=== PATIENT | female | born 1995 | race Caucasian/White ===

== ENCOUNTER 2017-06-30 22:06 | Emergency (ER) | payer OTHER ==
[~2017-06-30] VITALS: Ht 157.5 cm; Wt 51.1 kg
[~2017-06-30 22:06] MED LIST: AMOXICILLIN500 M1 PO; AMOXICILLIN500 MG PO; ASCORBIC ACID500 M3 PO; ATIVAN0.5 MG PO; BACTRIM,SEPT1 TABLET PO; COLACE100 MG PO; CONCERTA27 MG PO; FERROUS GLUCON324 MG PO; FLAGYL500 MG PO; FOLIC ACID1 MG PO; IBUPROFEN600 MG PO; IRON 100 PLUS1 EACH PO; KEFLEX500 MG PO; LAMICTAL25 MG PO; METADATE CD40 MG PO; METHYLPHENIDATE30 M1 PO; MOTRIN800 MG PO; NORCO 7.5/321 TABLET PO; OMEPRAZOLE40 M1 PO; PEPCID20 MG PO; PRENATAL TABLE1 EAC3 PO; PROMETHAZINE HC25 M1 PO; SERTRALINE HCL100 MG PO; SERTRALINE HCL25 MG PO; SERTRALINE HCL50 MG PO; TYLENOL EXTRA500 MG PO; VIBRAMYCIN100 MG PO; VITAMIN C PO; VITAMIN D-32000 UNI2 PO; VITAMIN D31000 UNI2 PO; Vicodin,Norco 5/325 PO; ZITHROMAX TRI-500 MG PO; ZOFRAN ODT4 MG PO; ZOFRAN4 MG PO; ZOLOFT100 MG PO; ZOLOFT25 MG PO; iron
[2017-07-01] MEDS ORDERED: LIDODERM 5% P1 PATCH TD (00:34)
[2017-07-01] MEDS ORDERED: MOTRIN600 MG PO (00:34)
[2017-07-01] MEDS ORDERED: FLEXERIL10 MG PO (00:34)
[2017-07-01 01:34] VITALS: BP 110/71
== END 2017-07-01 01:35 | disposition home or self-care (01) ==
LOC: RME 22:06 → EME 22:06 → RME 07-01 01:35
DX: S39.012A Strain of muscle, fascia and tendon of lower back, initial encounter (principal); X50.0XXA Overexertion from strenuous movement or load, initial encounter; Y93.F2 Activity, caregiving, lifting; Z97.5 Presence of (intrauterine) contraceptive device; F17.200 Nicotine dependence, unspecified, uncomplicated
CPT/HCPCS: 72100; 99281; 99284; J1885

== ENCOUNTER 2017-10-04 17:33 | Emergency (ER) | payer BC, OTHER ==
[~2017-10-04] VITALS: Ht 157.5 cm; Wt 45.8 kg
[~2017-10-04 17:33] MED LIST changes: +FLEXERIL10 MG PO; +LIDODERM 5% P1 PATCH TD; +MOTRIN600 MG PO
[2017-10-04] MEDS ORDERED: ZOLOFT50 MG PO (18:36)
[2017-10-04] MEDS ORDERED: LAMICTAL25 MG PO (18:36)
[2017-10-04] MEDS ORDERED: XANAX1 MG PO (18:37)
[2017-10-04] MEDS ORDERED: METHYLPHENIDATE PO (18:37)
[2017-10-04] MEDS ORDERED: NAPROSYN500 MG PO (19:51)
[2017-10-04 20:29] VITALS: BP 113/61
== END 2017-10-04 20:20 | disposition home or self-care (01) ==
LOC: EME 17:33
DX: S16.1XXA Strain of muscle, fascia and tendon at neck level, initial encounter (principal); F17.200 Nicotine dependence, unspecified, uncomplicated; W10.9XXA Fall (on) (from) unspecified stairs and steps, initial encounter; Z88.8 Allergy status to other drugs, medicaments and biological substances
CPT/HCPCS: 70450; 72040; 73030; 99281; 99283